=== PATIENT | female | born 1960 | race Two or more races ===

== ENCOUNTER 2019-09-30 12:19 | Outpatient (CLI) | payer BC | END 2019-09-30 22:23 | disposition home or self-care (01) | LOC: RESP 12:19 | DX: R00.2 Palpitations (principal) | CPT/HCPCS: 93225 ==

== ENCOUNTER 2019-10-01 14:34 | Outpatient (CLI) | payer BC ==
[2019-10-01 15:07] LABS: PLATELET COUNT 272 K/uL (152-353)
[2019-10-01 15:23] LABS: POTASSIUM 4.4 mmol/L (3.6-5.2); SODIUM 137 mmol/L (136-145)
== END 2019-10-01 19:05 | disposition home or self-care (01) ==
LOC: LABW 14:34
PROVIDERS: Internal Medicine
DX: R00.2 Palpitations (principal)
CPT/HCPCS: 36415; 80053; 80061; 84439; 84443; 85027; 85379

== ENCOUNTER 2019-10-13 13:10 | Outpatient (CLI) | payer BC | END 2019-10-13 21:50 | disposition home or self-care (01) | LOC: US 13:10 | DX: E05.90 Thyrotoxicosis, unspecified without thyrotoxic crisis or storm (principal) ==